=== PATIENT | female | born 1940 | race Caucasian/White ===

== ENCOUNTER → 2017-05-26 | Outpatient (CLI) | payer MEDICARE, BC | LOC: COL.RAD 10:17 | DX: M19.022 Primary osteoarthritis, left elbow (principal); M77.8 Other enthesopathies, not elsewhere classified; M94.8X8 Other specified disorders of cartilage, other site; M25.422 Effusion, left elbow; M75.22 Bicipital tendinitis, left shoulder ==

== ENCOUNTER → 2017-12-14 | Outpatient (REF) ==
[2017-12-14 19:33] LABS: THYROID STIMULATING HORMONE 1.3 uIU/mL (0.465-4.680)
== END ==
LOC: ZLAB.WCH 18:43
PROVIDERS: Internal Medicine
DX: Z01.89 Encounter for other specified special examinations (principal)

== ENCOUNTER → 2018-02-11 | Outpatient (REF) | LOC: ZLAB.WCH 15:51 | DX: Z01.89 Encounter for other specified special examinations (principal) ==

== ENCOUNTER → 2018-05-24 | Outpatient (CLI) | payer MEDICARE, BC | LOC: COL.RAD 13:01 | DX: M25.552 Pain in left hip (principal) | CPT/HCPCS: J3301; Q9967 ==

== ENCOUNTER → 2018-09-06 | Outpatient (REF) | LOC: ZLAB.WCH 16:02 | DX: Z01.89 Encounter for other specified special examinations (principal) ==

== ENCOUNTER 2019-02-21 08:27 | Day surgery (SDC) | payer MEDICARE, BC ==
[~2019-02-21] VITALS: Ht 165.1 cm; Wt 99.9 kg
[2019-02-21] MEDS ORDERED: BYSTOLIC5 MG PO (09:07)
[2019-02-21] MEDS ORDERED: PROTONIX 40MG T40 MG PO (09:08)
[2019-02-21] MEDS ORDERED: QUESTRAN4 GM/9 GM PO (09:09)
[2019-02-21] MEDS ORDERED: MASON NATURAL2000 IU (09:10)
[2019-02-21] MEDS ORDERED: OMEGA-3 1000 MG1 CAP PO (09:10)
[2019-02-21] MEDS ORDERED: CLARITIN 1010 MG/TAB PO (09:11)
[2019-02-21] MEDS ORDERED: PROBIOTIC-SUNMARK (09:11)
[2019-02-21] MEDS ORDERED: FLONASE NASAL S16 GM NS (09:12)
[2019-02-21] MEDS ORDERED: CALCIUM CITRAT200 M2 (09:13)
[2019-02-21] MEDS ORDERED: MULTIPLE VITAMI1 CAP PO (09:13)
[2019-02-21] MEDS ORDERED: ASPIRIN 81M81 MG/TA2 PO (09:14)
[2019-02-21 09:16] VITALS: BP 108/66; PULSE 61; TEMP 97.2
--- NOTE | 2019-02-21 10:22 | NUR ---
Initial visit; Patient and her thanked Industrial Editor for offering prayer and encouragement and spending time with them.
[2019-02-21 10:35] VITALS: BP 122/60; PULSE 61; TEMP 97.6
--- NOTE | 2019-02-21 10:35 | NUR ---
PT IS ALERT. RETURNS FROM PROCEDURE TO BAY 3 BY CART. AMBULATES FROM CART TO CHAIR WITH STANDBY ASSIST. MONITORS APPLIED. VSS AND WNL. OXYGEN AT ROOM AIR . IN ROOM. PT DENIES PAIN OR NAUSEA. DR. MORA AT BEDSIDE. CALL LIGHT IN REACH.
[2019-02-21 10:51] VITALS: BP 132/64; PULSE 61
--- NOTE | 2019-02-21 10:51 | NUR ---
IV SALINE LOCKED. PT TOLERATES FOOD AND DRINK. VSS AND WNL. IN ROOM. CALL LIGHT IN REACH.
--- NOTE | 2019-02-21 11:05 | NUR ---
DC INSTRUCTIONS GIVEN. PT VOICES UNDERSTANDING. VSS AND WNL. DENIES PAIN OR NAUSEA. PT DRESSES SELF.
[2019-02-21 11:06] VITALS: BP 136/68; PULSE 62
== END 2019-02-21 11:15 | disposition home or self-care (01) ==
LOC: SDCO 08:27
DX: K57.30 Diverticulosis of large intestine without perforation or abscess without bleeding (principal); K64.0 First degree hemorrhoids; K64.4 Residual hemorrhoidal skin tags; K62.5 Hemorrhage of anus and rectum; Z90.79 Acquired absence of other genital organ(s); Z90.10 Acquired absence of unspecified breast and nipple; K29.30 Chronic superficial gastritis without bleeding; K21.9 Gastro-esophageal reflux disease without esophagitis; E78.00 Pure hypercholesterolemia, unspecified; I10 Essential (primary) hypertension; K58.9 Irritable bowel syndrome, unspecified; Z79.82 Long term (current) use of aspirin; Z96.659 Presence of unspecified artificial knee joint; Z90.722 Acquired absence of ovaries, bilateral; Z88.2 Allergy status to sulfonamides; Z88.8 Allergy status to other drugs, medicaments and biological substances; Z88.6 Allergy status to analgesic agent; Z85.3 Personal history of malignant neoplasm of breast; Z83.79 Family history of other diseases of the digestive system; Z80.51 Family history of malignant neoplasm of kidney; Z86.010 Personal history of colon polyps
CPT/HCPCS: J2250; J3010; J7030

== ENCOUNTER 2019-04-26 11:45 | Inpatient (IN) | payer MEDICARE, BC ==
[~2019-04-26] VITALS: Ht 165.1 cm; Wt 98.9 kg
[~2019-04-26 11:45] MED LIST: ASPIRIN 81M81 MG/TA2 PO; BYSTOLIC5 MG PO; CALCIUM CITRAT200 M2 PO; CLARITIN 1010 MG/TAB PO; FLONASE NASAL S16 GM NS; MASON NATURAL2000 IU; MULTIPLE VITAMI1 CAP PO; OMEGA-3 1000 MG1 CAP PO; PROBIOTIC-SUNMARK; PROTONIX 40MG T40 MG PO; QUESTRAN4 GM/9 GM PO
[2019-07-19] VITALS (11 sets, daily range): BP systolic 108–173; BP diastolic 47–79; PULSE 56–110; TEMP 65–98
[2019-07-19] MEDS ORDERED: ALLEGRA ALLERG180 MG PO (08:51)
--- NOTE | 2019-07-19 14:34 | NUR ---
PT TO ROOM 325 PER BED WITH REPORT FROM JESSICA DE [facility]ANTIAG[facility] PACU @[id number]. PT IS A/O X3, DROWSEY BUT AROUSES TO VERBAL. LUNGS CLEAR. IRREGULAR HEART RATE. BOWEL SOUNDS PRESENT. BULKY DRESSING TO RIGHT KNEE. PEDAL PULSES PALPABLE. DR. CANELA HAS BEEN CONSULTED. FOR MEDICAL MANAGEMENT.
[2019-07-19 16:26] LABS: BASO % 0.1 % (0.0-2.0); GRAN # 7.3 (1.4-6.5); GRAN % 89.6 % (42.2-75.2); HEMATOCRIT 40.9 % (37.0-47.0); HEMOGLOBIN 13.3 g/dl (12.5-16.0); LYMPH # 0.7 (1.2-3.4); MEAN CELL VOLUME 92 fl (80.0-100.0); MEAN CORPUSCULAR HEMOGLOBIN 30 pg (27.0-31.0); MEAN CORPUSCULAR HGB CONC 33 g/dl (33.0-37.0); MEAN PLATELET VOLUME 9.4 fl (7.4-10.4); MONO # 0.1 (0.1-0.6); MONO % 1.1 % (1.7-9.3); PLATELET COUNT 176 K/mm3 (130-400); RED BLOOD COUNT 4.43 M/mm3 (4.10-5.30); REDCELL DISTRIBUTION WIDTH-CV 14.2 % (11.5-14.5)
[2019-07-19 16:39] LABS: ALBUMIN 3.9 gm/dL (3.5-5.0); BILIRUBIN,TOTAL 0.2 mg/dL (0.0-1.0); CALCIUM 9.1 mg/dL (8.4-10.2); CREATININE, serum 0.8 (0.52-1.25); MAGNESIUM 2.1 mg/dL (1.6-2.3); TOTAL PROTEIN 6.8 gm/dL (6.4-8.2)
[2019-07-19 17:08] LABS: TSH w REFLEX 0.403 uIU/mL (0.465-4.680)
[2019-07-20 04:30] VITALS: BP 124/53; PULSE 70; TEMP 98.6
[2019-07-20 07:17] LABS: HEMATOCRIT 33.5 % (37.0-47.0); HEMOGLOBIN 10.9 g/dl (12.5-16.0)
[2019-07-20 08:01] VITALS: BP 137/45; PULSE 68; TEMP 98.1
--- NOTE | 2019-07-20 10:53 | NUR ---
Initial visit; Patient thanked Professor Of Biostatistics for looking in on her and offering prayer and encouragement. Professor Of Biostatistics will keep Brenda in her prayers.
[2019-07-20 11:36] VITALS: BP 129/47; PULSE 61; TEMP 98.1
[2019-07-20 15:52] VITALS: BP 136/49; PULSE 57; TEMP 97.8
[2019-07-20 19:28] VITALS: BP 138/52; PULSE 65; TEMP 97.9
[2019-07-20 23:42] VITALS: BP 135/50; PULSE 60; TEMP 98.2
--- NOTE | 2019-07-21 02:04 | NUR ---
Patient has rested well so far this shift. Requires assist x2 from staff for transfers to bed. Patient denies pain. Dressing to right knee CDI. Utilizes SCDs and is currently on Aspirin. Will continue to monitor patient.
[2019-07-21 04:00] VITALS: BP 149/56; PULSE 58; TEMP 97.8
[2019-07-21 06:35] LABS: BASO % 0.1 % (0.0-2.0); EOS % 0.3 % (0-4.0); GRAN # 4.7 (1.4-6.5); GRAN % 65.4 % (42.2-75.2); LYMPH # 1.7 (1.2-3.4); LYMPH % 23.1 % (20.0-51.0); MEAN CELL VOLUME 90 fl (80.0-100.0); MEAN CORPUSCULAR HEMOGLOBIN 30 pg (27.0-31.0); MEAN CORPUSCULAR HGB CONC 33 g/dl (33.0-37.0); MEAN PLATELET VOLUME 9.9 fl (7.4-10.4); MONO # 0.8 (0.1-0.6); MONO % 10.5 % (1.7-9.3); PLATELET COUNT 157 K/mm3 (130-400); RED BLOOD COUNT 3.65 M/mm3 (4.10-5.30); REDCELL DISTRIBUTION WIDTH-CV 14.2 % (11.5-14.5)
[2019-07-21 08:36] VITALS: BP 158/55; PULSE 66; TEMP 97.5
[2019-07-21] MEDS ORDERED: PACERONE200 MG PO (08:56)
[2019-07-21] MEDS ORDERED: XARELTO10 MG PO (08:58)
[2019-07-21] MEDS ORDERED: XARELTO20 MG PO (08:58)
--- NOTE | 2019-07-21 11:30 | NUR ---
CARDIOLOGY AT BEDSIDE TO PLACE LOOP RECORDER. CONSENT ON CHART.
[2019-07-21 12:48] VITALS: BP 124/45; PULSE 62; TEMP 97.5
--- NOTE | 2019-07-21 13:46 | NUR ---
BUBBA met with the patient and the patient's , Alirio to discuss a discharge plan. The patient lives in [place] with her , Alirio. The patient does not have DME and reports independence with ADLs. The patient's PCP is Dr. Deutsch and patient receives medications from [facility] in [place] with no difficulties. The patient has advanced directives and SW obtained copies for the patient's chart. Upon discharge the patient plans to return home. The patient has outpatient physical therapy at [place] and she will go on M/W/F and her will be transporting to appointments. There are no additional needs at this time.
--- NOTE | 2019-07-21 15:00 | NUR ---
PHARMACY MEET WITH PATIENT TO GO OVER XARELTO. PATIENT WANTED TO STAY ANOTHER NIGHT BUT HAS MEET DISCHARGE CRITERIA AND HAS ORDERS. PATIENT REPORTS SHE WILL DISCHARGE TONIGHT AFTER SHIFT CHANGE SO SHE CAN STAY LONG POSSIBLE. GIVEN DISCHARGE SCRIPTS TO GET FILLED BEFORE THE PHARMACY CLOSES. LEFT.
[2019-07-21 16:03] VITALS: BP 123/41; PULSE 66; TEMP 97.6
--- NOTE | 2019-07-21 21:43 | NUR ---
Criteria for discharge met. Patient given Xarelto and pain medication at about 2030. Patient's then went to [facility] to pickle maker prescriptions. Discharge summary and education was gone over with patient and her spouse. Denies any questions or further needs. Patient voided and then was assisted out by surgical staff via wheelchair to personal vehicle at 2150. All belongings sent with patient. INT to right wrist discontinued.
== END 2019-07-21 21:48 | disposition home or self-care (01) | DRG 470 ==
LOC: JCC 07-19 07:30 → SURG 07-19 08:22 → JCC 07-19 10:00 → SURG 07-19 19:00
PROVIDERS: Physician Assistant; ADMIT Orthopaedic Surgery
PROC: 0SRC0J9 Replacement of Right Knee Joint with Synthetic Substitute, Cemented, Open Approach (ICD-10-PCS; principal; 2019-07-19 10:00)
PROC: 0JH632Z Insertion of Monitoring Device into Chest Subcutaneous Tissue and Fascia, Percutaneous Approach (ICD-10-PCS; 2019-07-21)
DX: M17.11 Unilateral primary osteoarthritis, right knee (principal); I97.191 Other postprocedural cardiac functional disturbances following other surgery; K21.9 Gastro-esophageal reflux disease without esophagitis; I10 Essential (primary) hypertension; K58.9 Irritable bowel syndrome, unspecified; G47.33 Obstructive sleep apnea (adult) (pediatric); E78.00 Pure hypercholesterolemia, unspecified; K57.90 Diverticulosis of intestine, part unspecified, without perforation or abscess without bleeding; Z88.2 Allergy status to sulfonamides; Z88.1 Allergy status to other antibiotic agents; Z88.8 Allergy status to other drugs, medicaments and biological substances; Z85.3 Personal history of malignant neoplasm of breast; Z86.010 Personal history of colon polyps; Z90.12 Acquired absence of left breast and nipple; Z79.51 Long term (current) use of inhaled steroids; Z79.82 Long term (current) use of aspirin; Z85.828 Personal history of other malignant neoplasm of skin; Z90.49 Acquired absence of other specified parts of digestive tract; Z98.42 Cataract extraction status, left eye; Z98.41 Cataract extraction status, right eye; Z79.891 Long term (current) use of opiate analgesic; Z86.718 Personal history of other venous thrombosis and embolism; Z90.79 Acquired absence of other genital organ(s); Z86.73 Personal history of transient ischemic attack (TIA), and cerebral infarction without residual deficits; D64.9 Anemia, unspecified; I48.0 Paroxysmal atrial fibrillation; E05.80 Other thyrotoxicosis without thyrotoxic crisis or storm
CPT/HCPCS: 99222; 99231-AI; 99232-AI; A4314; A9284; C1776; J0690; J1100; J2250; J2405; J2704; J7120

== ENCOUNTER 2021-02-10 03:43 | Inpatient (IN) | payer MEDICARE, BC ==
[~2021-02-10 03:43] MED LIST changes: +ALLEGRA ALLERG180 MG PO; -MASON NATURAL2000 IU; +MASON NATURAL2000 IU PO; +PACERONE200 MG PO; +XARELTO10 MG PO; +XARELTO20 MG PO
--- NOTE | 2021-02-10 04:32 | NUR ---
Arrived via stretcher with EMT, awake, alert, oriented x 4, able to make needs known, ambulates with steady gait, wears glasses, Macy HARDING here to see patient, will continue to monitor
[2021-02-10] MEDS ORDERED: ALLEGRA 180MG180 MG PO (04:46)
[2021-02-10] MEDS ORDERED: ASPIRIN 81M81 MG/TA2 PO (04:46)
[2021-02-10 05:04] VITALS: BP 190/72; PULSE 73; TEMP 97.7
--- NOTE | 2021-02-10 06:15 | NUR ---
Call placed to Macy Dominguez re: nausea- medication times, blood pressure 190/72- Macy responded with - give scheduled blood pressure early, give morphine, give zofran, wait to give other medication later in the am.
--- NOTE | 2021-02-10 07:33 | NUR ---
Patient was awake in bed upon entering the room. Patient is still experiencing abdominal pain in the epigasric region. NS was still running @ 200mL and IV did have a bit of blood draining d/t location of IV and patient bending her arm. While in the room, this student nurse assisted the patient to the bathroom without any difficulties.
--- NOTE | 2021-02-10 07:41 | NUR ---
IV site does have mild bleeding r/t location of IV and patient bending her arm frequently.
[2021-02-10 10:14] VITALS: BP 152/76; PULSE 76; TEMP 97.7
[2021-02-10 10:27] LABS: BASO % 0.2 % (0.0-2.0); GRAN # 6.7 (1.4-6.5); GRAN % 79.8 % (42.2-75.2); HEMATOCRIT 40.3 % (37.0-47.0); LYMPH % 12.3 % (20.0-51.0); MEAN CELL VOLUME 90 fl (80.0-100.0); MEAN CORPUSCULAR HEMOGLOBIN 29 pg (27.0-31.0); MEAN CORPUSCULAR HGB CONC 32 g/dl (33.0-37.0); MEAN PLATELET VOLUME 10.6 fl (7.4-10.4); MONO # 0.6 (0.1-0.6); MONO % 7.1 % (1.7-9.3); PLATELET COUNT 171 K/mm3 (130-400); RED BLOOD COUNT 4.46 M/mm3 (4.10-5.30); REDCELL DISTRIBUTION WIDTH-CV 13.3 % (11.5-14.5)
--- NOTE | 2021-02-10 12:06 | NUR ---
First visit from the brake operator. prayed with patient. No other needs right now.
[2021-02-10 12:09] VITALS: BP 175/74; PULSE 70; TEMP 98
--- NOTE | 2021-02-10 13:52 | NUR ---
BUBBA met with the patient and her , Alirio (ph#[phone]), to discuss discharge plan. The [place] [facility] with her . She reports independence with ADLs and has a cane and CPAP. The patient's PCP is Dr. Be Deutsch and she receives her medications from [facility]. She reports no difficulties obtaining her meds. The patient's DPOA-HC is in EMR and it designates her . Their sons: Johnson and Liam are the alternates. The patient plans to return home with her upon discharge. SW discussed home health and their benefits. The patient and her report that they are not interested in home health at this time. SW to follow as needed. *Discharge plan: home with *
[2021-02-10 14:22] LABS: ALBUMIN 3.6 gm/dL (3.5-5.0); CALCIUM 8.7 mg/dL (8.4-10.2); CHOLESTEROL RISK RATIO 4.7; CREATININE, serum 0.67 (0.52-1.25); TOTAL PROTEIN 6.6 gm/dL (6.4-8.2)
[2021-02-10 16:02] VITALS: BP 162/98; PULSE 64; TEMP 97.6
--- NOTE | 2021-02-10 18:57 | NUR ---
Patient has been c/o abdominal pain frequently today. It has been being managed with IV morphine and zofran. Patient makes sure that she calls as soon as it is time for both medications. Pain level has been staying between 6 and 8 according to patient. Patient is refusing most of her PO medications d/t fear of them increasing abdominal pain. Patient vomited a small amount of bile 2-3 times today.
--- NOTE | 2021-02-10 19:10 | NUR ---
Awake, alert, oriented x 4, talking on phone with family, at bedside, updated on plan of care and change of shift, no c/o at this time, IV fluids running to R PICC as ordered- tolerated well, poor appetite noted, fall precautions in place, call martinez w/i reach. Will continue to monitor.
[2021-02-10 20:12] VITALS: BP 139/77; PULSE 65; TEMP 97.8
[2021-02-11 00:20] VITALS: BP 157/65; PULSE 69; TEMP 98.4
[2021-02-11 04:03] VITALS: BP 157/71; PULSE 70; TEMP 98.5
[2021-02-11 07:57] VITALS: BP 167/62; PULSE 76; TEMP 98.3
[2021-02-11 08:29] LABS: BASO % 0.2 % (0.0-2.0); GRAN # 10.5 (1.4-6.5); GRAN % 82.7 % (42.2-75.2); HEMATOCRIT 37.6 % (37.0-47.0); HEMOGLOBIN 12.1 g/dl (12.5-16.0); LYMPH # 1.2 (1.2-3.4); LYMPH % 9.7 % (20.0-51.0); MEAN CELL VOLUME 89 fl (80.0-100.0); MEAN CORPUSCULAR HEMOGLOBIN 29 pg (27.0-31.0); MEAN CORPUSCULAR HGB CONC 32 g/dl (33.0-37.0); MEAN PLATELET VOLUME 10.5 fl (7.4-10.4); MONO # 0.9 (0.1-0.6); PLATELET COUNT 164 K/mm3 (130-400); RED BLOOD COUNT 4.21 M/mm3 (4.10-5.30); REDCELL DISTRIBUTION WIDTH-CV 13.6 % (11.5-14.5)
[2021-02-11 08:48] LABS: ALBUMIN 3.3 gm/dL (3.5-5.0); BILIRUBIN,TOTAL 1.5 mg/dL (0.0-1.0); CALCIUM 7.8 mg/dL (8.4-10.2); CREATININE, serum 0.62 (0.52-1.25); POTASSIUM 3.7 mmol/L (3.4-5.0); TOTAL PROTEIN 6.2 gm/dL (6.4-8.2)
--- NOTE | 2021-02-11 13:17 | NUR ---
PT HAS GONE FOR MRCP AND RETURNED. THE PATIENT IS DENYING ANY HEAVY PAIN AT THIS TIME. NO OTHER CONCERNS AT THIS TIME.
--- NOTE | 2021-02-11 14:29 | NUR ---
Manager Beverage met with patient to check in. Patient confirms she plans to return home upon discharge.
[2021-02-11 16:34] VITALS: BP 164/55; PULSE 76; TEMP 98.2
--- NOTE | 2021-02-11 19:04 | NUR ---
REPORT GIVEN TO JONNATHAN BUSTAMANTE AND JONNATHAN JIANG. NO FURTHER CONCERNS
[2021-02-11 19:12] VITALS: BP 136/54; PULSE 81; TEMP 97.5
[2021-02-11 23:36] VITALS: BP 158/58; PULSE 77; TEMP 99
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
[2021-02-12 03:20] VITALS: BP 146/77; PULSE 73; TEMP 98.1
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
[2021-02-12 06:26] LABS: HEMOGLOBIN 10.8 g/dl (12.5-16.0); MEAN CELL VOLUME 90 fl (80.0-100.0); MEAN CORPUSCULAR HEMOGLOBIN 29 pg (27.0-31.0); MEAN CORPUSCULAR HGB CONC 32 g/dl (33.0-37.0); MEAN PLATELET VOLUME 10.6 fl (7.4-10.4); PLATELET COUNT 134 K/mm3 (130-400); RED BLOOD COUNT 3.72 M/mm3 (4.10-5.30); REDCELL DISTRIBUTION WIDTH-CV 14.1 % (11.5-14.5)
[2021-02-12 06:27] LABS: BILIRUBIN,TOTAL 1.3 mg/dL (0.0-1.0); CALCIUM 7.5 mg/dL (8.4-10.2); CREATININE, serum 0.61 (0.52-1.25); MAGNESIUM 2.1 mg/dL (1.6-2.3); POTASSIUM 3.1 mmol/L (3.4-5.0); TOTAL PROTEIN 5.7 gm/dL (6.4-8.2)
[2021-02-12 06:29] LABS: HEMATOCRIT 33.3 % (37.0-47.0)
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
[2021-02-12 07:40] VITALS: BP 146/57; PULSE 84; TEMP 98.6
[2021-02-12 09:10] LABS: COLLECTION METHOD CLEAN CATCH
[2021-02-12 09:33] LABS: MUCOUS Present /lpf; PH 5 (5-8); SQUAMOUS EPITHELIAL 0-2 /hpf; URINE APPEARANCE Hazy; URINE BACTERIA None Seen /hpf; URINE BILIRUBIN Negative (NEGATIVE); URINE BLOOD 2+ (NEGATIVE); URINE COLOR Amber; URINE GLUCOSE Negative (NEGATIVE); URINE KETONE 1+ (NEGATIVE); URINE LEUKOCYTE ESTERASE Negative (NEGATIVE); URINE NITRATE Negative (NEGATIVE); URINE PROTEIN(semi-quant) 2+ (NEGATIVE); URINE RBC 0-2 /hpf; URINE UROBILINOGEN Negative (NEGATIVE)
[2021-02-12 15:56] VITALS: BP 158/65; PULSE 77; TEMP 99.3
--- NOTE | 2021-02-12 17:46 | NUR ---
PT HAS COMPLAINED OF NAUSEA, BUT IS AWARE OF THE TIME SHE IS ABLE TO GET HER NEXT DOSE OF ZOFRAN. NO OTHER CONCERNS AT THIS TIME.
[2021-02-12 20:03] VITALS: BP 149/61; PULSE 80; TEMP 98.9
[2021-02-12 23:35] VITALS: BP 151/63; PULSE 75; TEMP 98.4
--- NOTE | 2021-02-13 01:37 | NUR ---
PT. SITTING UP IN BED, A/OX4, VSS. 02 ROOM AIR. PT STATES SHE WOULD LIKE TO REVIEW HER CT RESULTS FROM 02/12. NURSE REVIEWED CT RESULTS WITH PT. AND WAS ABLE TO ANSWER QUESTIONS. PT EXPRESSES UNDERSTANDING. NO FURTHER NEEDS EXPRESSED AT THIS TIME. CALL LIGHT WITHIN REACH.
[2021-02-13 03:36] VITALS: BP 130/40; PULSE 77; TEMP 99.1
--- NOTE | 2021-02-13 06:21 | NUR ---
PT HAD UNEVENTFUL NIGHT. PT CURRENTLY REPORTS NO NAUSEA, REPORTS NO PAIN. GENERAL DISCOMFORT AROUND ABDOMEN. VSS. 02 ROOM AIR. CALL LIGHT WITHIN REACH.
--- NOTE | 2021-02-13 06:37 | NUR ---
PT HAD SEVERAL EPISODES OF ANXIETY THROUGH OUT THE NIGHT. PT REPORTED FEELING ANXIOUS OVER BLOOD ADMINISTRATION AND HEART CATHERIZATION SCHEDULED TODAY, 02/13/21. NURSE PROVIDED ALL RELEVANT EDUCATION REGARDING PROCEDURES. NURSE STAYED WITH PT TO COMFORT. PT MEDICATED WITH XANAX AND MORPHINE. NURSE REMINDED PT TO CALL FOR ANY ADDITIONAL NEEDS. CALL LIGHT WITHIN REACH.
[2021-02-13 06:40] LABS: BASO % 0.2 % (0.0-2.0); EOS % 0.1 % (0-4.0); GRAN # 10.4 (1.4-6.5); GRAN % 82.4 % (42.2-75.2); HEMOGLOBIN 10.6 g/dl (12.5-16.0); LYMPH # 1.2 (1.2-3.4); LYMPH % 9.2 % (20.0-51.0); MEAN CELL VOLUME 89 fl (80.0-100.0); MEAN CORPUSCULAR HEMOGLOBIN 29 pg (27.0-31.0); MEAN CORPUSCULAR HGB CONC 33 g/dl (33.0-37.0); MEAN PLATELET VOLUME 10.7 fl (7.4-10.4); MONO % 7.5 % (1.7-9.3); PLATELET COUNT 141 K/mm3 (130-400); REDCELL DISTRIBUTION WIDTH-CV 14.1 % (11.5-14.5)
[2021-02-13 06:46] LABS: ALBUMIN 3.1 gm/dL (3.5-5.0); CALCIUM 7.9 mg/dL (8.4-10.2); CREATININE, serum 0.6 (0.52-1.25); POTASSIUM 3.4 mmol/L (3.4-5.0); TOTAL PROTEIN 5.9 gm/dL (6.4-8.2)
[2021-02-13 07:37] VITALS: BP 152/55; PULSE 74; TEMP 99.4
--- NOTE | 2021-02-13 10:05 | NUR ---
Pt awake and alert upon entry, talkative and appropriate. No C/O pain at this time. Shift assessments complete, left Pt call light in reach, bed in lowest position.
[2021-02-13 11:09] VITALS: BP 157/65; PULSE 72; TEMP 98.9
--- NOTE | 2021-02-13 12:55 | NUR ---
Processing Archivist spoke with Hospitalist who advised she talked with patient about the possibility of going to [facility]. SW followed up with patient who had her on speakerphone. Patient states at this time she does not want to go to , however was open to Home Health services. SW provided Medicare.gov list of agencies and patient selected [facility]. BUBBA contacted Augustina at [facility] and faxed referral. Augustina advised they can accept. Discharge Plan: Home with [facility].
[2021-02-13 16:33] VITALS: BP 152/60; PULSE 73; TEMP 98.8
[2021-02-13 19:25] VITALS: BP 138/44; PULSE 76; TEMP 98.3
[2021-02-14] VITALS (7 sets, daily range): BP systolic 110–186; BP diastolic 51–77; PULSE 68–102; TEMP 98.2–99.9
--- NOTE | 2021-02-14 00:55 | NUR ---
PT A/OX4, PLEASANT AND COOPERATIVE, 02 ROOM AIR. CURRENTLY FREE OF N/V/D. REPORTS ABDOMEN PAIN /, DENIES MEDICATION. PT STATES SHE HAS BEEN STRAINING WHILE ATTEMPTING TO PASS BM EVEN AFTER DOCUSATE, SENNOSIDE AND MIRALAX ADMINISTRATION. EDUCATED PT SHE SHOULD NOT REQUIRE TO STRAIN, TO CONTINUE TO CONSUME LIQUIDS, FOLLOW MEDICATION REGIMEN AND AMBULATE REGULARLY. NURSE AND PT WALKED THE FLOOR. PT WAS ABLE TO AMBULATE OVER 100 STEPS. REMINDED PT TO CALL FOR ASSISTANCE. NO FURTHER NEEDS EXPRESSED AT THIS TIME. WILL CONTINUE TO MONITOR. CALL LIGHT WITHIN REACH.
[2021-02-14 07:03] LABS: BASO % 0.3 % (0.0-2.0); EOS % 0.3 % (0-4.0); GRAN # 9.4 (1.4-6.5); GRAN % 80.2 % (42.2-75.2); HEMOGLOBIN 10.4 g/dl (12.5-16.0); LYMPH # 1.2 (1.2-3.4); LYMPH % 10.2 % (20.0-51.0); MEAN CELL VOLUME 89 fl (80.0-100.0); MEAN CORPUSCULAR HEMOGLOBIN 29 pg (27.0-31.0); MEAN CORPUSCULAR HGB CONC 33 g/dl (33.0-37.0); MEAN PLATELET VOLUME 10.9 fl (7.4-10.4); MONO % 8.7 % (1.7-9.3); PLATELET COUNT 161 K/mm3 (130-400); RED BLOOD COUNT 3.61 M/mm3 (4.10-5.30); REDCELL DISTRIBUTION WIDTH-CV 14.2 % (11.5-14.5)
[2021-02-14 07:05] LABS: CALCIUM 7.9 mg/dL (8.4-10.2); CREATININE, serum 0.57 (0.52-1.25); MAGNESIUM 2.3 mg/dL (1.6-2.3); POTASSIUM 3.5 mmol/L (3.4-5.0)
--- NOTE | 2021-02-14 09:16 | NUR ---
Pt awake and alert upon entry, sitting by window eating breakfast. no C/O pain at this time. Has C/O no bowel movement X6 days. Shift assessments complete, left Pt call light in reach.
--- NOTE | 2021-02-14 13:49 | NUR ---
Ice Skater contacted Augustina at [facility] and advised that per progress note, patient may discharge over the weekend.
[2021-02-15 04:26] VITALS: BP 124/46; PULSE 99; TEMP 99.3
[2021-02-15 06:35] LABS: BASO % 0.2 % (0.0-2.0); EOS # 0.1 (0.0-0.7); EOS % 0.6 % (0-4.0); GRAN # 9.2 (1.4-6.5); GRAN % 78.5 % (42.2-75.2); LYMPH # 1.2 (1.2-3.4); LYMPH % 10.3 % (20.0-51.0); MEAN CELL VOLUME 88 fl (80.0-100.0); MEAN CORPUSCULAR HGB CONC 33 g/dl (33.0-37.0); MEAN PLATELET VOLUME 10.6 fl (7.4-10.4); MONO # 1.1 (0.1-0.6); MONO % 9.6 % (1.7-9.3); PLATELET COUNT 169 K/mm3 (130-400); RED BLOOD COUNT 3.36 M/mm3 (4.10-5.30); REDCELL DISTRIBUTION WIDTH-CV 14.5 % (11.5-14.5)
[2021-02-15 06:38] LABS: HEMATOCRIT 29.6 % (37.0-47.0); HEMOGLOBIN 9.7 g/dl (12.5-16.0); MEAN CORPUSCULAR HEMOGLOBIN 29 pg (27.0-31.0)
[2021-02-15 06:49] LABS: ALBUMIN 2.7 gm/dL (3.5-5.0); BILIRUBIN,TOTAL 0.3 mg/dL (0.0-1.0); CALCIUM 7.4 mg/dL (8.4-10.2); CREATININE, serum 0.59 (0.52-1.25); POTASSIUM 3.2 mmol/L (3.4-5.0); TOTAL PROTEIN 5.5 gm/dL (6.4-8.2)
--- NOTE | 2021-02-15 08:00 | NUR ---
PT REPORTS PASSING SOME GAS. PT HAD MEDIUM SOFT BM IN AM AND TWO HARD BM THE DAY BEFORE. PT ABD SOFT AND HAS GOOD BS PER AUSCULTATION. VITALS REVIEWED, MEDICATIONS GIVEN, ASSESSMENT PERFORMED, PRUNE JUICE BROUGHT IN, NO OTHER NEEDS AT THIS TIME.
[2021-02-15 09:26] VITALS: BP 117/52; PULSE 80; TEMP 99.1
[2021-02-15 12:34] VITALS: BP 112/54; PULSE 73; TEMP 98
[2021-02-15 16:19] VITALS: BP 154/69; PULSE 81; TEMP 98.8
--- NOTE | 2021-02-15 17:13 | NUR ---
PT PLEASANT, AOX4, HAD BEEN HAVING HARD BM DURING THE DAY, PT INDEPENDENT IN ROOM, AMBULATING WELL, PT REPORTS PAIN 2/10 IN ABD. PT WANTS TO GO HOME, NO OTHER NEEDS.
--- NOTE | 2021-02-15 20:03 | NUR ---
resting quietly in bed, tolerating diet, PICC line to R arm wnl, updated on plan of care, ambulatory independently, uses call martinez appropriately. Denies pain
[2021-02-15 21:06] VITALS: BP 143/69; PULSE 82; TEMP 99.2
[2021-02-16 00:20] VITALS: BP 128/44; PULSE 75; TEMP 99.1
[2021-02-16 04:55] VITALS: BP 130/59; PULSE 73; TEMP 98.2
--- NOTE | 2021-02-16 07:45 | NUR ---
PT PLEASANT, PT INDEPENDENT IN THE ROOM, HAD BM IN AM, GAVE PT MEDS, ASSESSMENT PERFORMED, VITALS REVIEWED, PT REPORTS PAIN 2/10 IN RUQ, NO OTHER NEEDS.
[2021-02-16 07:49] VITALS: BP 128/50; PULSE 72; TEMP 98.1
[2021-02-16 08:28] LABS: MEAN CELL VOLUME 88 fl (80.0-100.0); MEAN CORPUSCULAR HEMOGLOBIN 29 pg (27.0-31.0); MEAN CORPUSCULAR HGB CONC 33 g/dl (33.0-37.0); MEAN PLATELET VOLUME 10.2 fl (7.4-10.4); PLATELET COUNT 181 K/mm3 (130-400); RED BLOOD COUNT 3.49 M/mm3 (4.10-5.30); REDCELL DISTRIBUTION WIDTH-CV 14.7 % (11.5-14.5)
[2021-02-16 08:29] LABS: HEMATOCRIT 30.8 % (37.0-47.0)
[2021-02-16 08:40] LABS: BILIRUBIN,TOTAL 0.4 mg/dL (0.0-1.0); CALCIUM 8.3 mg/dL (8.4-10.2); CREATININE, serum 0.75 (0.52-1.25); POTASSIUM 3.7 mmol/L (3.4-5.0)
[2021-02-16 08:42] LABS: BAND 1 % (0-10); EOSINOPHIL 1 % (0-4); HYPOCHROMIA 1+; LYMPHOCYTE 18 % (20.0-51.0); NEUTROPHILS 75 % (42.0-75.2); PLATELET ESTIMATE NORMAL (NORMAL)
[2021-02-16 11:34] VITALS: BP 120/44; PULSE 74; TEMP 98.2
[2021-02-16 17:19] VITALS: BP 145/61; PULSE 78; TEMP 98.9
--- NOTE | 2021-02-16 17:24 | NUR ---
PT PLEASANT, REPORTS MILD RUQ DISCOMFORT, PT HAD BM IN MORNING. LEGS ELEVATED IN BED, INDEPENDENT IN ROOM, FREQUENTLY WALKS THE HALLS, NO OTHER NEEDS AT THIS TIME.
--- NOTE | 2021-02-16 19:06 | NUR ---
Awake, alert, oriented x 4, BLE elevated w/marla hose in place, updated on plan of care, at bedside, encouraged to ambulate, will continue to monitor.
[2021-02-16 19:58] VITALS: BP 141/52; PULSE 80; TEMP 98.7
[2021-02-17 00:28] VITALS: BP 124/53; PULSE 69; TEMP 98.5
[2021-02-17 04:02] VITALS: BP 141/55; PULSE 75; TEMP 98.8
[2021-02-17 05:11] LABS: HEMOGLOBIN 10.7 g/dl (12.5-16.0); MEAN CELL VOLUME 88 fl (80.0-100.0); MEAN CORPUSCULAR HEMOGLOBIN 29 pg (27.0-31.0); MEAN CORPUSCULAR HGB CONC 33 g/dl (33.0-37.0); MEAN PLATELET VOLUME 10.6 fl (7.4-10.4); PLATELET COUNT 181 K/mm3 (130-400); RED BLOOD COUNT 3.69 M/mm3 (4.10-5.30); REDCELL DISTRIBUTION WIDTH-CV 14.6 % (11.5-14.5)
[2021-02-17 05:21] LABS: CALCIUM 8.4 mg/dL (8.4-10.2); CREATININE, serum 0.75 (0.52-1.25); POTASSIUM 4.1 mmol/L (3.4-5.0)
[2021-02-17 05:22] LABS: HEMATOCRIT 32.5 % (37.0-47.0)
--- NOTE | 2021-02-17 06:29 | NUR ---
Resting quietly in bed, VS stable, updated on plan of care, patient teaching re: marla orellana, ambulating and elevating BLE for swelling, verbalized understanding.
--- NOTE | 2021-02-17 07:19 | NUR ---
PT LAYING IN BED AT THIS TIME. JOHN HOSEddie ON. DENIES ANY PAIN AT THIS TIME. LEGS STILL +2-3 EDEMA. NO OTHER CONERNS AT THIS TIME.
[2021-02-17 08:18] VITALS: BP 113/61; PULSE 74; TEMP 98.8
[2021-02-17] MEDS ORDERED: LASIX 40MG TABL40 MG PO (10:42)
[2021-02-17] MEDS ORDERED: MIRALAX238G PO (10:43)
--- NOTE | 2021-02-17 10:51 | NUR ---
General Production Manager attended clincial rounds with the team. [facility]17 with [facility]. PT/OT/Nursing services. SW faxed discharge orders. There are no additional needs at this time.
[2021-02-17 11:36] VITALS: BP 118/60; PULSE 66; TEMP 98
== END 2021-02-17 16:51 | disposition home or self-care (01) | DRG 439 ==
LOC: MEDICAL 03:43
PROVIDERS: Family Medicine; Internal Medicine; Physician Assistant; Student in an Organized Health Care Education/Training Program; ADMIT Internal Medicine
PROC: 02HV33Z Insertion of Infusion Device into Superior Vena Cava, Percutaneous Approach (ICD-10-PCS; principal; 2021-02-10)
DX: K85.90 Acute pancreatitis without necrosis or infection, unspecified (principal); R65.10 Systemic inflammatory response syndrome (SIRS) of non-infectious origin without acute organ dysfunction; J90 Pleural effusion, not elsewhere classified; J98.11 Atelectasis; N39.0 Urinary tract infection, site not specified; K59.00 Constipation, unspecified; E87.6 Hypokalemia; D64.9 Anemia, unspecified; K21.9 Gastro-esophageal reflux disease without esophagitis; E78.5 Hyperlipidemia, unspecified; K75.81 Nonalcoholic steatohepatitis (NASH); G47.33 Obstructive sleep apnea (adult) (pediatric); K58.9 Irritable bowel syndrome, unspecified; K57.90 Diverticulosis of intestine, part unspecified, without perforation or abscess without bleeding; K29.80 Duodenitis without bleeding; Z96.651 Presence of right artificial knee joint; Z85.3 Personal history of malignant neoplasm of breast; K57.30 Diverticulosis of large intestine without perforation or abscess without bleeding
CPT/HCPCS: 99223-AI; 99232-AI; 99233-AI; 99239; A9284; C1751; J0696; J1644; J1940; J2270; J2405; J7030; Q9967